=== PATIENT | female | born 1940 | race African-American/Black ===

== ENCOUNTER 2018-06-29 22:30 | Inpatient (IN) | payer MEDICARE, MEDICAID ==
[~2018-06-29] VITALS: Ht 162.6 cm; Wt 93.0 kg
[2018-06-30 00:47] LABS: HEMATOCRIT. 40.6 % (36.0-48.0); HEMOGLOBIN. 13.8 g/dL (12.0-16.0); MEAN CORPUSCULAR HEMOGLOBIN 32.7 pg (28.0-32.0); MEAN CORPUSCULAR VOLUME 96.4 fL (81.0-99.0); MEAN PLATELET VOLUME 9.4 fl (7.4-10.4); PLATELET 126 x1000/uL (130-400); RED BLOOD CELL COUNT 4.21 mill/uL (4.2-5.4); RED CELL DISTRIBUTION WIDTH 14.1 % (11.6-14.6)
[2018-06-30 00:52] LABS: CHLORIDE 99 mEq/L (98-107)
[2018-06-30 01:06] LABS: PLATELET ESTIMATE NORMAL
[2018-06-30] MEDS ORDERED: KETOROLAC 15MG/ML VIAL IV NR (02:00)
[2018-06-30 02:59] LABS: CLARITY URINE CLEAR (CLEAR); COLOR URINE YELLOW (YELLOW); KETONES URINE 1+ (NEGATIVE); LEUKOCYTE ESTERASE URINE NEGATIVE (NEGATIVE); NITRITE URINE NEGATIVE (NEGATIVE); OCCULT BLOOD URINE 1+ (NEGATIVE); PH URINE 7.5 (4.5-8.0); PROTEIN URINE NEGATIVE (NEGATIVE); SPECIFIC GRAVITY URINE 1.013 (1.005-1.030)
[2018-06-30] MEDS ORDERED: PIPERACILLIN/TAZ 3.375G PREMIX 50 ML IV NR (03:00)
[2018-06-30] MEDS ORDERED: PIPERACILLIN/TAZOBACTAM 3.375GM/50ML PREMIX IV ONE (03:00)
[2018-06-30 04:45] VITALS: BP 157/85
[2018-06-30 08:00] VITALS: BP 124/66
[2018-06-30] MEDS ORDERED: NITROGLYCERIN 0.4MG TABLET SL SL PRN (08:00)
[2018-06-30] MEDS ORDERED: NA PHOS,M-B/NA PHOS,DI-BA ENEMA 118ML PR PRN (08:00)
[2018-06-30] MEDS ORDERED: ONDANSETRON HCL 4MG/2ML INJ IV PRN (08:00)
[2018-06-30] MEDS ORDERED: GUAIFENESIN 200MG/10ML SUGAR FREE UDC PO PRN (08:00)
[2018-06-30] MEDS ORDERED: ACETAMINOPHEN 325MG TABLET PO PRN (08:00)
[2018-06-30] MEDS ORDERED: DOCUSATE SODIUM 100MG CAPSULE PO PRN (08:00)
[2018-06-30] MEDS ORDERED: DIPHENHYDRAMINE 50MG/ML VIAL IV PRN (08:00)
[2018-06-30] MEDS ORDERED: ZOLPIDEM TARTRATE 5MG TABLET PO PRN (08:00)
[2018-06-30] MEDS ORDERED: TRAMADOL 50MG TABLET PO PRN (08:00)
[2018-06-30] MEDS ORDERED: CLONIDINE 0.1MG TABLET PO PRN (08:00)
[2018-06-30] MEDS ORDERED: MORPHINE SULFATE 4 MG/ML CPJ (NOT FOR IM USE) IV PRN (08:00)
[2018-06-30] MEDS ORDERED: LORAZEPAM 0.5MG TABLET PO PRN (08:00)
[2018-06-30] MEDS ORDERED: IPRATROPIUM/ALBUTEROL 0.5-3(2.5)MG/3ML NEB INH PRN (08:00)
[2018-06-30] MEDS ORDERED: ENOXAPARIN 30MG/0.3ML SYR SUBCUT SCH (09:00)
[2018-06-30] MEDS: LISINOPRIL 20MG TABLET PO SCH ×2 (09:07→20:04)
[2018-06-30] MEDS: PANTOPRAZOLE SODIUM 40 MG/VIAL IV SCH (09:07)
[2018-06-30] MEDS: METOPROLOL TARTRATE 25MG TABLET PO SCH ×2 (09:07→21:33)
[2018-06-30] MEDS: SODIUM CHLORIDE 0.9% 1,000 ML IV SCH ×2 (09:15→18:31)
[2018-06-30] MEDS: PIPERACILLIN/TAZ 3.375G PREMIX 50 ML IV SCH ×2 (11:28→20:06)
[2018-06-30 12:00] VITALS: BP 114/63
[2018-06-30 12:25] LABS: INR 1.1; PARTIAL THROMBOPLASTIN TIME 29.4 sec (23.4-31.0); PROTHROMBIN TIME 11.6 sec (9.6-11.0)
[2018-06-30 16:00] VITALS: BP 101/55
[2018-06-30 20:00] VITALS: BP 127/61
[2018-07-01] VITALS: BP 128/60
[2018-07-01] MEDS: SODIUM CHLORIDE 0.9% 1,000 ML IV SCH ×2 (03:46→23:56)
[2018-07-01] MEDS: PIPERACILLIN/TAZ 3.375G PREMIX 50 ML IV SCH ×3 (03:46→20:16)
[2018-07-01 04:00] VITALS: BP 147/76
[2018-07-01 06:58] LABS: HEMATOCRIT 35.6 % (36.0-48.0); HEMOGLOBIN 12.1 g/dL (12.0-16.0); MEAN CORPUSCULAR HEMOGLOBIN 32.6 pg (28.0-32.0); MEAN CORPUSCULAR VOLUME 95.7 fL (81.0-99.0); PLATELET 126 x1000/uL (130-400); RED BLOOD CELL COUNT 3.72 mill/uL (4.2-5.4); RED CELL DISTRIBUTION WIDTH 14.5 % (11.6-14.6)
[2018-07-01 07:09] LABS: INR 1.1; PARTIAL THROMBOPLASTIN TIME 26.7 sec (23.4-31.0); PROTHROMBIN TIME 11.5 sec (9.6-11.0)
[2018-07-01 08:00] VITALS: BP 147/70
[2018-07-01 08:27] LABS: CHLORIDE 105 mEq/L (98-107)
[2018-07-01] MEDS: PANTOPRAZOLE SODIUM 40 MG/VIAL IV SCH (10:04)
[2018-07-01] MEDS: LISINOPRIL 20MG TABLET PO SCH ×2 (10:05→20:17)
[2018-07-01] MEDS: METOPROLOL TARTRATE 25MG TABLET PO SCH ×2 (10:05→20:17)
[2018-07-01 12:00] VITALS: BP 140/68
[2018-07-01] MEDS ORDERED: SIMETHICONE 40 MG/0.6 ML 30ML ONE (14:49)
[2018-07-01] MEDS ORDERED: IOHEXOL-300 100 ML BOTTLE ONE (14:49)
[2018-07-01] MEDS ORDERED: MIDAZOLAM HCL 2 MG/2 ML VIAL ONE (15:08)
[2018-07-01] MEDS ORDERED: LIDOCAINE HCL/PF 1% 10 MG/ML 5ML VIAL ONE (15:08)
[2018-07-01] MEDS ORDERED: SUCCINYLCHOLINE CHLORIDE 200MG/10ML IV ONE (15:08)
[2018-07-01] MEDS ORDERED: NEOSTIGMINE METHYLSULFATE 1MG/ML 10 ML VIAL ONE (15:08)
[2018-07-01] MEDS ORDERED: SODIUM CHLORIDE 0.9% 10ML VIAL ONE (15:08)
[2018-07-01] MEDS ORDERED: GLYCOPYRROLATE 0.2 MG/ML 2ML VIAL ONE (15:08)
[2018-07-01] MEDS ORDERED: ROCURONIUM BROMIDE 10MG/ML VIAL 5ML IV ONE (15:08)
[2018-07-01] MEDS ORDERED: EPHEDRINE SULFATE 50MG/ML VIAL ONE (15:08)
[2018-07-01] MEDS ORDERED: PHENYLEPHRINE HCL 10 MG/ML 1ML (IV VIAL) IV ONE (15:08)
[2018-07-01] MEDS ORDERED: FENTANYL CITRATE/PF 50MCG/ML 2ML VIAL ONE (15:08)
[2018-07-01] MEDS ORDERED: CEFAZOLIN SODIUM 1000MG/VIAL ONE (15:08)
[2018-07-01] MEDS ORDERED: PROPOFOL 200MG/20ML VIAL IV ONE (15:08)
[2018-07-01] MEDS ORDERED: ONDANSETRON HCL 4MG/2ML INJ ONE (15:09)
[2018-07-01] MEDS ORDERED: METOCLOPRAMIDE HCL 10MG/2ML VIAL ONE (15:09)
[2018-07-01] MEDS ORDERED: SODIUM CHLORIDE 0.9% 1,000 ML IV ONE (16:23)
[2018-07-01] MEDS ORDERED: MEPERIDINE HCL/PF 25MG/ML CPJ IV PRN (16:30)
[2018-07-01] MEDS ORDERED: HYDROMORPHONE HCL/PF 2MG/ML CPJ IV PRN (16:30)
[2018-07-01] MEDS ORDERED: ONDANSETRON HCL 4MG/2ML INJ IV PRN (16:30)
[2018-07-01 19:25] LABS: HEMATOCRIT 37.1 % (36.0-48.0); HEMOGLOBIN 12.6 g/dL (12.0-16.0); MEAN CORPUSCULAR HEMOGLOBIN 32.9 pg (28.0-32.0); MEAN CORPUSCULAR VOLUME 96.7 fL (81.0-99.0); PLATELET 137 x1000/uL (130-400); RED BLOOD CELL COUNT 3.84 mill/uL (4.2-5.4); RED CELL DISTRIBUTION WIDTH 14.4 % (11.6-14.6)
[2018-07-01 19:37] LABS: CHLORIDE 108 mEq/L (98-107)
[2018-07-01 20:00] VITALS: BP 135/66
[2018-07-02] VITALS: BP 120/63
[2018-07-02 04:00] VITALS: BP 141/67
[2018-07-02] MEDS: PIPERACILLIN/TAZ 3.375G PREMIX 50 ML IV SCH ×2 (04:00→12:00)
[2018-07-02 04:40] LABS: CHLORIDE 110 mEq/L (98-107)
[2018-07-02 05:19] LABS: HEMATOCRIT 34.6 % (36.0-48.0); HEMOGLOBIN 11.9 g/dL (12.0-16.0); MEAN CORPUSCULAR VOLUME 96.1 fL (81.0-99.0); PLATELET 131 x1000/uL (130-400); RED CELL DISTRIBUTION WIDTH 14.3 % (11.6-14.6)
[2018-07-02] MEDS ORDERED: POTASSIUM CHLORIDE 20MEQ TABLET SR PO NR (07:30)
[2018-07-02 08:00] VITALS: BP 119/62
[2018-07-02] MEDS: PANTOPRAZOLE SODIUM 40 MG/VIAL IV SCH (08:59)
[2018-07-02] MEDS: LISINOPRIL 20MG TABLET PO SCH (08:59)
[2018-07-02] MEDS: METOPROLOL TARTRATE 25MG TABLET PO SCH (08:59)
[2018-07-02 12:00] VITALS: BP 155/74
[2018-07-02 14:53] VITALS: BP 119/62
== END 2018-07-02 16:20 | disposition home or self-care (01) | DRG 444 ==
LOC: ER 22:30 → 6EST 06-30 03:25 → ENRESERV 06-30 03:46
PROVIDERS: ADMIT Internal Medicine; ATTEND Internal Medicine
PROC: 0F798ZZ Dilation of Common Bile Duct, Via Natural or Artificial Opening Endoscopic (ICD-10-PCS; principal; 2018-07-01)
PROC: BF131ZZ Fluoroscopy of Gallbladder and Bile Ducts using Low Osmolar Contrast (ICD-10-PCS; 2018-07-01)
PROC: 0FC98ZZ Extirpation of Matter from Common Bile Duct, Via Natural or Artificial Opening Endoscopic (ICD-10-PCS; 2018-07-01)
DX: K80.61 Calculus of gallbladder and bile duct with cholecystitis, unspecified, with obstruction (principal); K85.10 Biliary acute pancreatitis without necrosis or infection; R65.10 Systemic inflammatory response syndrome (SIRS) of non-infectious origin without acute organ dysfunction; K56.41 Fecal impaction; E87.6 Hypokalemia; I10 Essential (primary) hypertension; E66.9 Obesity, unspecified; K76.0 Fatty (change of) liver, not elsewhere classified; K76.89 Other specified diseases of liver; K82.8 Other specified diseases of gallbladder; M17.0 Bilateral primary osteoarthritis of knee; N20.0 Calculus of kidney
CPT/HCPCS: 36415; 74176; 74181; 74328; 76000; 76700; 80048; 80076; 83036; 85027; 93005; 93970; 96365; 96372; 96375; 99285; C1726; C1769; C1893; C9113; J0330; J0690; J1650; J1885; J2250; J2370; J2405; J2543; J2704; J2710; J2765; J3010; J3490; J7030; Q9967

== ENCOUNTER 2018-11-01 23:53 | Emergency (ER) | payer MEDICARE, MEDICAID ==
[~2018-11-01] VITALS: Ht 162.6 cm; Wt 90.0 kg
[2018-11-02] MEDS ORDERED: ONDANSETRON HCL 4MG/2ML INJ IV STA (01:50)
[2018-11-02] MEDS ORDERED: VISCOUS LIDOCAINE 2% 15 ML UDC PO STA (01:50)
[2018-11-02] MEDS ORDERED: FAMOTIDINE 20MG/2ML VIAL IV STA (01:50)
[2018-11-02] MEDS ORDERED: KETOROLAC 30MG/ML VIAL IV STA (01:50)
[2018-11-02] MEDS ORDERED: MAGNESIUM/ALUMINUM HYDROXIDE/SIMETHICONE 30ML UDC PO STA (01:50)
[2018-11-02] MEDS ORDERED: SODIUM CHLORIDE 0.9% 1,000 ML IV ONE (01:50)
[2018-11-02 02:53] LABS: BASOPHILS % 0.2 % (0.0-2.0); HEMOGLOBIN. 13.8 g/dL (12.0-16.0); LYMPHOCYTES % 11.4 % (20.0-50.0); MEAN CORPUSCULAR HEMOGLOBIN 33.6 pg (28.0-32.0); MEAN CORPUSCULAR VOLUME 97.5 fL (81.0-99.0); NEUTROPHILS % 85.4 % (40.0-76.0); PLATELET 185 x1000/uL (130-400); RED BLOOD CELL COUNT 4.11 mill/uL (4.2-5.4); RED CELL DISTRIBUTION WIDTH 13.6 % (11.6-14.6)
[2018-11-02 02:54] LABS: CHLORIDE 105 mEq/L (98-107)
[2018-11-02 03:53] VITALS: BP 142/78
== END 2018-11-02 03:56 | disposition home or self-care (01) ==
LOC: ER 23:53
DX: R11.2 Nausea with vomiting, unspecified (principal); I10 Essential (primary) hypertension; M19.90 Unspecified osteoarthritis, unspecified site
CPT/HCPCS: 36415; 80053; 83690; 85025; 93005; 96361; 96374; 96375; 99284; J1885; J2405; J3490; J7030

== ENCOUNTER 2024-03-10 16:41 | Emergency (ER) | payer BC ==
[~2024-03-10] VITALS: Ht 162.6 cm; Wt 48.0 kg
[2024-03-10 16:56] VITALS: TEMP 98.3; O2SAT 99
[2024-03-10 19:19] LABS: BASOPHILS % 0.4 % (0.0-2.0); DIFFERENTIAL COMMENT 0; EOSINOPHILS % 0.2 % (0.0-5.0); HEMATOCRIT. 40.1 % (36.0-48.0); HEMOGLOBIN. 13.6 g/dL (12.0-16.0); LYMPHOCYTES % 23.1 % (20.0-50.0); MEAN CORPUSCULAR HEMOGLOBIN 35.3 pg (28.0-32.0); MEAN CORPUSCULAR HGB CONC 33.8 g/dL (31.0-37.0); MEAN CORPUSCULAR VOLUME 104.5 fL (81.0-99.0); MEAN PLATELET VOLUME 9.6 fl (7.4-10.4); MONOCYTES % 6.7 % (2.0-8.0); NEUTROPHILS % 69.6 % (40.0-76.0); PLATELET 159 x1000/uL (130-400); POTASSIUM 4.2 mEq/L (3.5-5.1); RED BLOOD CELL COUNT 3.84 mill/uL (4.2-5.4); RED CELL DISTRIBUTION WIDTH 14.4 % (11.6-14.6); WHITE BLOOD COUNT 6.9 x1000/uL (4.5-11.0)
[2024-03-10 19:20] LABS: CALCIUM 9.3 mg/dL (8.7-10.4)
[2024-03-10 19:25] LABS: CREATININE 1.2 mg/dL (0.6-1.0)
[2024-03-10 21:50] VITALS: BP 124/74; PULSE 68; RESP 16; O2SAT 100
[2024-03-10 23:03] LABS: TROPONIN I HIGH SENSITIVITY 34 ng/L (3.0-34)
[2024-03-10 23:04] LABS: ALANINE AMINOTRANSFERASE 21 IU/L (10-49); ALBUMIN 3.9 g/dL (3.2-4.8); ASPARTATE AMINOTRANSFERASE 20 IU/L (<34); BILIRUBIN DIRECT 0.6 mg/dL (<=3.0); INR 1.2; PARTIAL THROMBOPLASTIN TIME 24.1 sec (23.4-31.0); PROTHROMBIN TIME 13.3 sec (9.6-11.0)
[2024-03-10 23:05] LABS: BILIRUBIN TOTAL 1.8 mg/dL (0.1-1.0); PROTEIN TOTAL 6.9 g/dL (6.0-8.3)
== END 2024-03-11 01:33 | disposition left against medical advice (07) ==
LOC: ER 16:41 → EDBEDREQ 19:31 → ER 03-11 01:33
DX: R09.89 Other specified symptoms and signs involving the circulatory and respiratory systems (principal); K80.20 Calculus of gallbladder without cholecystitis without obstruction; R10.84 Generalized abdominal pain; I11.9 Hypertensive heart disease without heart failure; M19.90 Unspecified osteoarthritis, unspecified site
CPT/HCPCS: 36415; 71045; 74176; 76705; 80048; 80076; 83880; 84484; 85025; 93005; 99285